=== PATIENT | male | born 1960 | race Caucasian/White ===

== ENCOUNTER 2019-04-07 06:18 | Day surgery (SDC) | payer BC ==
[~2019-04-07] VITALS: Ht 165.1 cm; Wt 145.6 kg
[~2019-04-07 06:18] MED LIST: LORTAB 5/500 501 TAB PO; NO HOME MEDICATIONS
[2019-04-07 06:41] VITALS: BP 158/94; PULSE 76; TEMP 98.3
[2019-04-07] MEDS ORDERED: TYLENOL 8 HR PO (06:44)
[2019-04-07] MEDS ORDERED: ALEVE 220MG220 MG PO (06:45)
[2019-04-07 08:15] VITALS: BP 125/77; PULSE 69; TEMP 98
--- NOTE | 2019-04-07 08:15 | NUR ---
Pt arrived back to room post colonoscopy via cart with Endo RN. Pt was able ambulate with one touch assist easily. Pt is awake, alert, and oriented. Water and muffin brought per pt's request. Pt denies pain or nausea, and he states he feels great.
[2019-04-07 08:30] VITALS: BP 120/83; PULSE 69
--- NOTE | 2019-04-07 08:30 | NUR ---
Pt sitting comfortably in chair with friend at bedside. VSS and WNL. Pt denies nausea or pain at this time and was able to finish muffin and water with no complications. Pt states that he is ready to go home.
[2019-04-07 08:45] VITALS: BP 116/71; PULSE 64
--- NOTE | 2019-04-07 08:45 | NUR ---
Reviewed discharge information with patient and brother including signs/symptoms to watch for and when to call the dr or go to ED. Pt expressed understanding and had no further concerns/questions. Encouraged pt to call dr office if concerns arise. VSS and WNL upon discharge.
[2019-04-07 08:53] VITALS: BP 125/77; PULSE 71; TEMP 98
== END 2019-04-07 09:05 | disposition home or self-care (01) ==
LOC: SDCO 06:18
DX: Z12.11 Encounter for screening for malignant neoplasm of colon (principal); K57.30 Diverticulosis of large intestine without perforation or abscess without bleeding; F32.9 Major depressive disorder, single episode, unspecified; M17.9 Osteoarthritis of knee, unspecified; E66.01 Morbid (severe) obesity due to excess calories; I10 Essential (primary) hypertension; K21.9 Gastro-esophageal reflux disease without esophagitis
CPT/HCPCS: J2704; J3010; J7030

== ENCOUNTER → 2023-10-01 | Outpatient (CLI) | payer BC ==
[~2023-10-01] MED LIST changes: +ALEVE 220MG220 MG PO; +TYLENOL 8 HR PO
== END ==
LOC: COL.VAS 07:59
DX: I35.1 Nonrheumatic aortic (valve) insufficiency (principal); I51.7 Cardiomegaly